=== PATIENT | male | born 1980 | race Caucasian/White ===

== ENCOUNTER 2017-06-26 18:16 | Emergency (ER) | payer OTHER ==
[~2017-06-26 18:16] MED LIST: CYCL10TA PO; IBUP1TAB7 PO; PRED50 PO; PRED5PAK PO; Z.0.NO CURRENT MEDS
[2017-06-26 18:18] VITALS: BP 141/100; PULSE 88; RESP 26; TEMP 98.9; O2SAT 98
[2017-06-26] MEDS ORDERED: AMOX500C PO (18:41)
[2017-06-26] MEDS ORDERED: IPRASOL INH (18:42)
[2017-06-26] MEDS ORDERED: ALBU6.7H INH (18:43)
[2017-06-26] MEDS ORDERED: methylPREDNISolone SOD SUCC 125 MG/2 ML VIAL IV PUSH ONE (19:00)
[2017-06-26] MEDS ORDERED: cefTRIAXone INJ 2,000 MG in SODIUM CHLORIDE 0.9% INJ 100 ML IV ONE (19:00)
[2017-06-26] MEDS ORDERED: AZITHROMYCIN INJ 500 MG in SODIUM CHLOR 0.9% 250 ML INJ 250 ML IV ONE (19:00)
[2017-06-26] MEDS ORDERED: SODIUM CHLORIDE 0.9% FLUSH 10 ML FLUSH IVF PRN (19:00)
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
[2017-06-26] MEDS: RESP: ALBUTEROL 2.5 MG/IPRATROPIUM 0.5 MG NEB (SCH) INH ×2 (19:34→19:35)
--- NOTE | 2017-06-26 19:39 | RADRPT ---
EXAM DATE/TIME: 06/26/2017 19:21 [place] COMPARISON: No previous studies available for comparison. INDICATIONS : Chest pain and coughing. MEDICAL HISTORY : None. SURGICAL HISTORY : None. ENCOUNTER: Initial ACUITY: 3 days PAIN SCORE: 8/10 LOCATION: Right chest FINDINGS: PA and lateral views of the chest demonstrate the lungs to be symmetrically aerated without evidence of mass, infiltrate or effusion. The cardiomediastinal contours are unremarkable. Osseous structure s are intact. CONCLUSION: 1. No acute cardiopulmonary disease. Benito Cameron MD on June 26, 2017 at 19:37 Board Certified Radiologist. This report was verified electronically.
[2017-06-26 19:43] LABS: AUTOMATED NEUTROPHIL # 4.7 TH/MM3 (1.8-7.7); BASOPHIL # 0.1 TH/MM3 (0-0.2); BASOPHIL % 0.8 % (0.0-2.0); EOSINOPHIL # 0.1 TH/MM3 (0-0.4); EOSINOPHIL % 1.4 % (0.0-4.0); HEMATOCRIT 42.6 % (39.0-51.0); HEMOGLOBIN 14.4 GM/DL (13.0-17.0); LYMPHOCYTE # 2.5 TH/MM3 (1.0-4.8); MEAN CORPUSCULAR HEMOGLOBIN 29.9 PG (27.0-34.0); MEAN CORPUSCULAR HGB CONC 33.9 % (32.0-36.0); MEAN PLATELET VOLUME 8.8 FL (7.0-11.0); MONO % 8.6 % (0.0-8.0); MONOCYTE # 0.7 TH/MM3 (0-0.9); NEUT % 58.2 % (16.0-70.0); PLATELET COUNT 209 TH/MM3 (150-450); RED BLOOD COUNT 4.84 MIL/MM3 (4.50-5.90); RED CELL DISTRIBUTION WIDTH 13.7 % (11.6-17.2)
[2017-06-26 20:01] LABS: BICARBONATE 25.4 MEQ/L (21.0-32.0); CALCIUM 8.5 MG/DL (8.5-10.1); CREATININE 1.2 MG/DL (0.60-1.30)
[2017-06-26] MEDS ORDERED: PRED20 PO (20:22)
[2017-06-26] MEDS ORDERED: ZITH250T PO (20:22)
[2017-06-26] MEDS ORDERED: GUAI10TA PO (20:22)
== END 2017-06-26 22:11 | disposition home or self-care (01) ==
LOC: NEPD 18:16
DX: J45.909 Unspecified asthma, uncomplicated (principal)
CPT/HCPCS: 71020; 80048; 83605; 85025; 87040; 94640; 94664; 96365; 96375; 99284; J0456; J0696; J2930; J7050